=== PATIENT | female | born 1955 | race Two or more races ===

== ENCOUNTER 2018-02-11 09:30 | Inpatient (IN) | payer OTHER ==
[~2018-02-11] VITALS: Ht 175.3 cm; Wt 137.0 kg
[2018-02-11] MEDS ORDERED: PROVASTATIN PO (13:58)
[2018-02-11] MEDS ORDERED: LASIX20 MG PO (13:58)
[2018-02-11] MEDS ORDERED: BENICAR5 MG PO (14:00)
[2018-02-11] MEDS ORDERED: [UNRECOGNIZED DRUG - OTHER] PO (14:00)
[2018-02-19] MEDS ORDERED: BENICAR5 MG PO (11:41)
[2018-02-19] MEDS ORDERED: PRAVASTATIN SOD20 MG PO (11:42)
[2018-02-19] MEDS ORDERED: HYDROCHLOROTHIA25 MG PO (11:42)
== END 2018-02-21 13:45 | DRG 470 ==
LOC: O/R 02-18 07:01 → SURH 02-18 07:01
PROVIDERS: Orthopaedic Surgery
PROC: 0SRD0J9 Replacement of Left Knee Joint with Synthetic Substitute, Cemented, Open Approach (ICD-10-PCS; principal; 2018-02-18 10:15)
PROC: 3E0F7GC Introduction of Other Therapeutic Substance into Respiratory Tract, Via Natural or Artificial Opening (ICD-10-PCS; 2018-02-19)
DX: M17.12 Unilateral primary osteoarthritis, left knee (principal); D62 Acute posthemorrhagic anemia; I12.9 Hypertensive chronic kidney disease with stage 1 through stage 4 chronic kidney disease, or unspecified chronic kidney disease; N18.3 Chronic kidney disease, stage 3 (moderate); E11.9 Type 2 diabetes mellitus without complications; J45.20 Mild intermittent asthma, uncomplicated; E66.01 Morbid (severe) obesity due to excess calories

== ENCOUNTER 2022-06-04 06:20 | Day surgery (SDC) | payer OTHER ==
[~2022-06-04 06:20] MED LIST: BENICAR5 MG PO; HYDROCHLOROTHIA25 MG PO; LASIX20 MG PO; PRAVASTATIN SOD20 MG PO; PROVASTATIN PO; [UNRECOGNIZED DRUG - OTHER] PO
== END 2022-06-04 10:25 | disposition home or self-care (01) ==
LOC: AMB-ENDOS 06:20
PROVIDERS: ATTEND Surgery
DX: D12.7 Benign neoplasm of rectosigmoid junction (principal); K57.30 Diverticulosis of large intestine without perforation or abscess without bleeding; R19.4 Change in bowel habit; Z20.822 Contact with and (suspected) exposure to COVID-19; Z88.0 Allergy status to penicillin; Z91.041 Radiographic dye allergy status; Z88.6 Allergy status to analgesic agent

== ENCOUNTER 2023-02-06 14:01 | Outpatient (CLI) | payer OTHER | END 2023-02-06 14:02 | disposition home or self-care (01) | LOC: LAB 14:01 | PROVIDERS: ATTEND Specialist | DX: L02.91 Cutaneous abscess, unspecified (principal) ==